=== PATIENT | female | born 1980 | race African-American/Black ===

== ENCOUNTER 2016-07-11 23:05 | Emergency (ER) | payer MEDICAID, OTHER ==
[~2016-07-11] VITALS: Ht 172.7 cm; Wt 100.0 kg
[~2016-07-11 23:05] MED LIST: AUGM875T PO; FERR325T PO; NORV5TAB PO
[2016-07-11 23:06] VITALS: BP 183/95; PULSE 66; RESP 18; TEMP 98.5; O2SAT 98
[2016-07-11 23:41] VITALS: BP 150/72; PULSE 80; RESP 20; TEMP 98; O2SAT 98
[2016-07-11] MEDS ORDERED: AMLO5 PO (23:46)
[2016-07-12] MEDS ORDERED: POLY10O EACH EYE (00:20)
--- NOTE | 2016-07-12 00:23 | PD ---
HPI Chief Complaint: Eye Problems/Injury Time Seen by Provider: 00:15 Travel History International Travel<30 days: No Contact w/Intl Traveler<30days: No Traveled to known affect area: No History of Present Illness HPI 35-year-old female presents for evaluation of bilateral eye itching, irritation , discharge and matting. Symptoms started this morning. She reports that she had a "itchy" throat yesterday. She reports that she has 2 family members with similar symptoms. Denies recent travel, fevers, chills, blurred vision. Denies foreign body sensation. She occasionally wears contacts but has not worn any recently. No other complaints. PFSH Past Medical History Anemia: Yes Anxiety: Yes Diminished Hearing: No Hypertension: Yes (HAS NOT TAKEN MEDS FOR 8 MONTHS) Musculoskeletal: Yes ('PINCHED NERVE') Immunizations Current: Yes Tetanus Vaccination: Unknown Influenza Vaccination: No ?: Not : 3 Para: 2 Miscarriage: 1 : 1 Ectopic : No Ovarian Cysts: No Tubal Ligation: Yes Past Surgical History Gynecologic Surgery: Yes (TUBAL LIGATION) Hysterectomy: No Other Surgery: Yes (REPAIR #3DIGIT RIGHT HAND) Social History Alcohol Use: No Tobacco Use: No Substance Use: No Allergies-Medications (Allergen,Severity, Reaction): Coded Allergies: Percocet (Verified Adverse Reaction, Severe, HALLUCINATE, 07/11/16) Reported Meds & Prescriptions Reported Meds & Active Scripts Active Polytrim Opth Drops (Polymyxin/Trimethoprim Sulfate) 10,000-0.1 Unit/Ml-% Soln 1 Drop EACH EYE Q6HR 7 Days Ferrous Sulfate 325 Mg Tab 325 Mg PO DAILY Reported Norvasc (Amlodipine Besylate) 5 Mg Tab 5 Mg PO DAILY Review of Systems General / Constitutional: No: Fever, Chills Eyes: Positive: Redness, Other, No: Foreign Body Sensation HENT: Positive: Sore Throat (positive for itching, drainage) Physical Exam Narrative GENERAL: Well-developed well-nourished female in no acute distress SKIN: Warm and dry. HEAD: Atraumatic. Normocephalic. EYES: Pupils equal and round. Mild conjunctival injection bilaterally. ENT: No nasal bleeding or discharge. Mucous membranes pink and moist. NECK: Trachea midline. No JVD. Data Data Last Documented VS Vital Signs Date Time Temp Pulse Resp B/P Pulse Ox O2 Delivery O2 Flow Rate FiO2 07/11/16 23:41 98.0 80 20 150/72 98 MDM Medical Decision Making Medical Screen Exam Complete: Yes Emergency Medical Condition: Yes Medical Record Reviewed: Yes Differential Diagnosis Conjunctivitisbacterial versus viral versus allergic, iritis, foreign body, corneal abrasion, endophthalmitis Narrative Course 35-year-old female with one-day history of bilateral eye itchiness, irritation, redness, matting and drainage. Examination and history are consistent with conjunctivitis. She is being discharged with Polytrim ophthalmic solution. Diagnosis Primary Impression: Bilateral conjunctivitis Qualified Code: H10.9 - Conjunctivitis of both eyes, unspecified conjunctivitis type Additional Instructions: Medication as prescribed. No contact use for 1 week. Wash pillow and pillowcase. Wash hands frequently. Return for any emergent medical conditions. Med/Other Pt SpecificInfo: Prescription(s) given Scripts Polymyxin B-Trimethoprim Opth Drops (Polytrim Opth Drops)10,000-0.1 Unit/Ml-% Soln1 Drop EACH EYE Q6HR 7 Days Ref 0 Prov:Nila Farias MD 07/12/16 Disposition: DISCHARGE HOME Condition: Stable Ezequiel Hudson Jul 12, 2016 00:23
[2016-07-15] MEDS ORDERED: AMLO5 PO (13:50)
[2016-08-16] MEDS ORDERED: AMLO5 PO (10:41)
== END 2016-07-12 00:36 | disposition home or self-care (01) ==
LOC: NEPB 23:05
DX: H10.9 Unspecified conjunctivitis (principal); I10 Essential (primary) hypertension
CPT/HCPCS: 99282

== ENCOUNTER 2017-05-10 21:25 | Emergency (ER) | payer MEDICAID ==
[~2017-05-10 21:25] MED LIST changes: +AMLO5 PO; -AUGM875T PO; -NORV5TAB PO
[2017-05-10 21:27] VITALS: BP 170/92; PULSE 69; RESP 16; TEMP 98.7; O2SAT 98
--- NOTE | 2017-05-10 22:47 | PD ---
HPI Chief Complaint: Headache Time Seen by Provider: 22:47 Travel History International Travel<30 days: No Contact w/Intl Traveler<30days: No Traveled to known affect area: No History of Present Illness HPI The patient is a 36 year old female who presents to the [facility] emergency department with a history of a postnasal drip and headache that began yesterday. She took a sinus pressure pill and her usual blood pressure pill and she began feel better. She has over the last week been having softer stool 2-3 x per day. Her headache is on the right side of her head and goes into the neck. She has been sneezing. She has a clear nasal discharge. In review of systems otherwise, she denies having any recent fevers, chest congestion, neck pain, chest pain, shortness of breath, abdominal pain, vomiting, urinary symptoms, or neurologic symptoms. [facility] Past Medical History Narrative Medical The patient's past medical history is significant for anemia, hypertension. Anemia: Yes Anxiety: Yes Cardiovascular Problems: Yes (HTN) Diminished Hearing: No Hypertension: Yes (HAS NOT TAKEN MEDS FOR 8 MONTHS) Musculoskeletal: Yes ('PINCHED NERVE') Immunizations Current: Yes LMP: 04/22 : 3 Para: 2 Miscarriage: 1 : 1 Ectopic : No Ovarian Cysts: No Tubal Ligation: Yes Past Surgical History Narrative Surgical The patient's past surgical history is significant for BTL. Gynecologic Surgery: Yes (TUBAL LIGATION) Hysterectomy: No Other Surgery: Yes (REPAIR #3DIGIT RIGHT HAND) Social History Alcohol Use: No Tobacco Use: No Substance Use: No Allergies-Medications (Allergen,Severity, Reaction): Coded Allergies: acetaminophen (Unverified Adverse Reaction, Intermediate, Hallucinations, 05/10/17) oxycodone (Unverified Adverse Reaction, Intermediate, Hallucinations, 05/10) Reported Meds & Prescriptions Reported Meds & Active Scripts Active Mucus Relief ER (Guaifenesin) 600 Mg Tab 600 Mg PO BID PRN 5 Days Norvasc (Amlodipine Besylate) 5 Mg Tab 5 Mg PO DAILY Ferrous Sulfate 325 Mg Tab 325 Mg PO DAILY Review of Systems Except as stated in HPI: all other systems reviewed are Neg General / Constitutional: No: Fever Eyes: No: Visual changes HENT: No: Headaches Cardiovascular: No: Chest Pain or Discomfort, Dyspnea on exertion Respiratory: No: Shortness of Breath Gastrointestinal: Positive: Nausea, Changes in Bowel Habits (loss stool), No: Vomiting, Diarrhea, Abdominal Pain Genitourinary: No: Dysuria Musculoskeletal: No: Pain Skin: No Rash Neurologic: Positive: Headache, No: Weakness, Focal Abnormalities, Change in Mentation, Slurred Speech, Sensory Disturbance Psychiatric: No: Depression Endocrine: No: Polydipsia Hematologic/Lymphatic: No: Easy Bruising Physical Exam Narrative General: The patient is a well-developed well-nourished female in no acute distress. Head and Neck exam: Head is normocephalic atraumatic. Eyes: EOMI, pupils are equal round and reactive to light. Nose: Midline septum with blue boggy terminates, clear nasal drainage. Mouth: Dentition unremarkable. Moist mucus membranes. Posterior oropharynx is not erythematous. No tonsillar hypertrophy. Uvula midline. Airway patent. Neck: No palpable lymphadenopathy. No nuchal rigidity. No thyromegaly. The patient has no spinous process tenderness to palpation. No step-off or crepitus. No erythema or ecchymosis. The patient reports right sided paraspinal cervical muscle tenderness on palpation. There is no underlying rash. Sinuses: The patient has sinus tenderness on palpation along the right side of her forehead. Cardiovascular: Regular rate and rhythm without murmurs, gallops, or rubs. No pulse deficit to the extremities. Lungs: Clear to auscultation bilaterally. No wheezes, rhonchi, or rales. Abdomen: Soft, without tenderness to palpation in all 4 quadrants of the abdomen. No guarding, rebound, or rigidity. Normal bowel sounds are audible. No tenderness on palpation of McBurney's point Extremities: No clubbing or cyanosis. The patient has trace pedal edema. 2+ pulses in all 4 extremities. No calf tenderness on palpation Back: No spinous process tenderness to palpation. No costovertebral angle tenderness to palpation. Neurologic Exam: Cranial nerves 2-12 were intact on exam. Strength is 5/5 in all 4 extremities. No sensory deficits noted. Skin Exam: No rash noted. Intact skin that is warm and dry. Data Data Last Documented VS Vital Signs Date Time Temp Pulse Resp B/P (MAP) Pulse Ox O2 Delivery O2 Flow Rate FiO2 05/10/17 23:21 61 18 178/107 (130) 100 Room Air 05/10/17 21:27 98.7 Orders Orders Electrocardiogram (05/10/17 22:58) Complete Blood Count With Diff (05/10/17 22:58) Comprehensive Metabolic Panel (05/10/17 22:58) Lipase (05/10/17 22:58) Urinalysis - C+S If Indicated (05/10/17 22:58) Magnesium (Mg) (05/10/17 22:58) Ct Brain W/O Iv Contrast(Rout) (05/10/17 22:58) Iv Access Insert/Monitor (05/10/17 22:58) Ecg Monitoring (05/10/17 22:58) Oximetry (05/10/17 22:58) Acetaminophen (Tylenol) (05/10/17 23:30) Acetaminophen (Tylenol) (05/10/17 23:45) Urine Culture (05/10/17 23:35) Ed Discharge Order (05/11/17 00:43) Labs Laboratory Tests Test 05/10/17 23:20 05/10/17 23:35 White Blood Count 6.4 TH/MM3 Red Blood Count 4.02 MIL/MM3 Hemoglobin 9.3 GM/DL Hematocrit 30.4 % Mean Corpuscular Volume 75.8 FL Mean Corpuscular Hemoglobin 23.1 PG Mean Corpuscular Hemoglobin Concent 30.5 % Red Cell Distribution Width 16.2 % Platelet Count 390 TH/MM3 Mean Platelet Volume 7.7 FL Neutrophils (%) (Auto) 66.3 % Lymphocytes (%) (Auto) 25.6 % Monocytes (%) (Auto) 5.5 % Eosinophils (%) (Auto) 2.1 % Basophils (%) (Auto) 0.5 % Neutrophils # (Auto) 4.3 TH/MM3 Lymphocytes # (Auto) 1.6 TH/MM3 Monocytes # (Auto) 0.4 TH/MM3 Eosinophils # (Auto) 0.1 TH/MM3 Basophils # (Auto) 0.0 TH/MM3 CBC Comment DIFF FINAL Differential Comment Blood Urea Nitrogen 15 MG/DL Creatinine 0.82 MG/DL Random Glucose 84 MG/DL Total Protein 7.4 GM/DL Albumin 3.4 GM/DL Calcium Level 8.3 MG/DL Magnesium Level 1.9 MG/DL Alkaline Phosphatase 52 U/L Aspartate Amino Transf (AST/SGOT) 13 U/L Alanine Aminotransferase (ALT/SGPT) 14 U/L Total Bilirubin 0.3 MG/DL Sodium Level 140 MEQ/L Potassium Level 3.5 MEQ/L Chloride Level 107 MEQ/L Carbon Dioxide Level 25.1 MEQ/L Anion Gap 8 MEQ/L Estimat Glomerular Filtration Rate 94 ML/MIN Lipase 304 U/L Urine Color LIGHT-YELLOW Urine Turbidity CLEAR Urine pH 6.5 Urine Specific [place] 1.015 Urine Protein NEG mg/dL Urine Glucose (UA) NEG mg/dL Urine Ketones NEG mg/dL Urine Occult Blood NEG Urine Nitrite NEG Urine Bilirubin NEG Urine Urobilinogen LESS THAN 2.0 MG/DL Urine Leukocyte Esterase LARGE Urine RBC LESS THAN 1 /hpf Urine WBC 10 /hpf Urine Squamous Epithelial Cells 2 /hpf Microscopic Urinalysis Comment CULTURE INDICATED MDM Medical Decision Making Medical Screen Exam Complete: Yes Emergency Medical Condition: Yes Medical Record Reviewed: Yes Interpretation(s) Last Impressions Head CT 05/10/17 2258 Signed Impressions: Service Date/Time: Wednesday, May 10, 2017 23:50 - CONCLUSION: Unremarkable noncontrast CT Jeyson Wright MD Differential Diagnosis Tension headache, versus migraine headache, versus hypertension related headache , versus allergy related headache, versus bacterial sinusitis Narrative Course During the course of the patients emergency department visit, the patients history, examination, and differential diagnosis were reviewed with the patient. The patient was placed on a quality assurance monitor chassis with oximetry and frequent blood pressure monitoring. The patient had IV access obtained and blood work sent for analysis. The patient will have a CT scan of the brain done and an ECG done. The patient's ECG shows a sinus rhythm with a sinus arrhythmia, nonspecific T-wave abnormalities, heart rate of 60, QRS duration 88 ms, QTC 411 ms, no acute ST segment elevation, T waves are inverted in lead 3. The patient was initially provided Tylenol for headache. The patients laboratory studies were reviewed and remarkable for a white count of 6.4, hemoglobin 9.3 which is compared to previous at 8.5, platelets 390 with a normal differential, CMP is unremarkable, urinalysis shows 10 WBCs, culture indicated. Radiology studies were reviewed and remarkable for a chest x-ray that shows no acute abnormality. CT scan of the brain shows no acute abnormality. Regarding the patient's headache and sinus congestion I recommended that she start on Mucinex. Regarding the patient's pyuria the patient was given a prescription for Macrobid. The patient was instructed to avoid decongestants as this can raise her blood pressure. The patient is resting comfortably and feels better, is alert and in no distress. The patients results and examination findings were discussed with the patient. The repeat examination is unremarkable and benign. The history, exam, diagnostic testing, and current condition do not suggest any significant pathology to warrant further testing, continued ED treatment, admission, or surgical evaluation at this point. The vital signs have been stable. The patient does not have uncontrollable pain, intractable vomiting, or other significant symptoms. The patient's condition is stable and appropriate for discharge. The patient will pursue further outpatient evaluation with a primary care physician or other designated or consulting physician as indicated in the discharge instructions. The patient expressed understanding and was agreeable with this plan. Diagnosis Primary Impression: Sinusitis Qualified Codes: J01.90 - Acute sinusitis, unspecified Additional Impression: Pyuria Referrals: Primary Care Physician 1 week Med/Other Pt SpecificInfo: Prescription(s) given Scripts Nitrofurantoin Monohydrate Macrocrystals (Macrobid) 100 Mg Cap 100 MG PO BID for Infection for 7 Days, #14 CAP 0 Refills Prov: Nila Farias MD 05/11/17 Guaifenesin ER (Mucus Relief ER) 600 Mg Tab 600 MG PO BID Y for CHEST CONGESTION AND/OR COUGH for 5 Days, #10 TAB 0 Refills Prov: Nila Farias MD 05/11/17 Disposition: 01 DISCHARGE HOME Condition: Stable Nila Farias MD May 10, 2017 22:47
[2017-05-10 23:21] VITALS: BP 178/107; PULSE 61; RESP 18; O2SAT 100
[2017-05-10] MEDS ORDERED: ACETAMINOPHEN 325 MG TAB PO ONE ×2 (23:30→23:45)
[2017-05-10 23:49] LABS: AUTOMATED NEUTROPHIL # 4.3 TH/MM3 (1.8-7.7); BASOPHIL % 0.5 % (0.0-2.0); EOSINOPHIL # 0.1 TH/MM3 (0-0.4); EOSINOPHIL % 2.1 % (0.0-4.0); HEMATOCRIT 30.4 % (35.0-46.0); HEMO FLAGS DIFF FINAL; LYMPH % 25.6 % (9.0-44.0); LYMPHOCYTE # 1.6 TH/MM3 (1.0-4.8); MEAN CELL VOLUME 75.8 FL (80.0-100.0); MEAN CORPUSCULAR HEMOGLOBIN 23.1 PG (27.0-34.0); MEAN CORPUSCULAR HGB CONC 30.5 % (32.0-36.0); MONO % 5.5 % (0.0-8.0); NEUT % 66.3 % (16.0-70.0); PLATELET COUNT 390 TH/MM3 (150-450); RED BLOOD COUNT 4.02 MIL/MM3 (4.00-5.30); RED CELL DISTRIBUTION WIDTH 16.2 % (11.6-17.2); WHITE BLOOD COUNT 6.4 TH/MM3 (4.0-11.0)
[2017-05-10 23:53] LABS: BLOOD, URINE NEG (NEG); COMMENT (UR) CULTURE INDICATED; CULTURE IF INDICATED CULTURE INDICATED; GLUCOSE,URINE NEG (NEG); KETONE, URINE NEG (NEG); NITRITE,URINE NEG (NEG); PH, URINE 6.5 (5.0-8.5); SQUAMOUS EPITHELIAL CELL URINE 2 /hpf (0-5); URINE COLOR LIGHT-YELLOW (YELLW/STRAW)
--- NOTE | 2017-05-10 23:58 | RADRPT ---
EXAM DATE/TIME: 05/10/2017 23:50 [facility] COMPARISON: No previous studies available for comparison. INDICATIONS : Cephalgia. RADIATION DOSE: 45.87 CTDIvol (mGy) MEDICAL HISTORY : Hypertension. SURGICAL HISTORY : Tubal ligation. ENCOUNTER: Initial ACUITY: 1 day PAIN SCALE: 5/10 LOCATION: cranial TECHNIQUE: Multiple contiguous axial images were obtained of the head. Using automated exposure control and adj ustment of the mA and/or kV according to patient size, radiation dose was kept as low as reasonably a chievable to obtain optimal diagnostic quality images. DICOM format image data is available electro nically for review and comparison. FINDINGS: CEREBRUM: The ventricles are normal for age. No evidence of midline shift, mass lesion, hemorrhage or acute in farction. No extra-axial fluid collections are seen. POSTERIOR FOSSA: The cerebellum and brainstem are intact. The 4th ventricle is midline. The cerebellopontine angle i s unremarkable. EXTRACRANIAL: The visualized portion of the orbits is intact. SKULL: The calvaria is intact. No evidence of skull fracture. CONCLUSION: Unremarkable noncontrast CT Jeyson Wright MD on May 10, 2017 at 23:56 Board Certified Radiologist. This report was verified electronically.
[2017-05-11 00:08] LABS: ANION GAP 8 MEQ/L (5-15); AST (GOT) 13 U/L (15-37); BICARBONATE 25.1 MEQ/L (21.0-32.0); BLOOD UREA NITROGEN 15 MG/DL (7-18); CHLORIDE 107 MEQ/L (98-107); GLOMERULAR FILTRATION RATE 94 ML/MIN (>89); MAGNESIUM 1.9 MG/DL (1.5-2.5); POTASSIUM 3.5 MEQ/L (3.5-5.1); SODIUM (NA) 140 MEQ/L (136-145)
[2017-05-11 00:09] LABS: ALT (GPT) 14 U/L (10-53)
[2017-05-11 00:11] LABS: ALKALINE PHOSPHATASE 52 U/L (45-117); TOTAL BILIRUBIN ADULT 0.3 MG/DL (0.2-1.0)
[2017-05-11] MEDS ORDERED: GUAI600T11 PO (00:37)
[2017-05-11] MEDS ORDERED: MACR100C2 PO (00:51)
[2017-05-11 01:01] VITALS: BP 166/83
--- NOTE | 2017-05-11 10:22 | EKG ---
Date Performed: 05/10/2017 Time Performed: 23:30:29 PTAGE: 36 years EKG: Sinus rhythm WITH SINUS ARRHYTHMIA NONSPECIFIC T-WAVE ABNORMALITY BORDERLINE ECG PREVIOUS TRACING : 09/24/2010 00.02 Compared to prior tracing no significant change DOCTOR: Jorje Luna Interpretating Date/Time 05/11/2017 10:20:43
== END 2017-05-11 01:10 | disposition home or self-care (01) ==
LOC: NEPE 21:25
DX: J32.9 Chronic sinusitis, unspecified (principal); N39.0 Urinary tract infection, site not specified; I49.8 Other specified cardiac arrhythmias; R94.31 Abnormal electrocardiogram [ECG] [EKG]; D64.9 Anemia, unspecified; F41.9 Anxiety disorder, unspecified; I10 Essential (primary) hypertension
CPT/HCPCS: 70450; 80053; 81001; 83690; 83735; 85025; 87086; 93005; 99285